=== PATIENT | male | born 1945 ===

== ENCOUNTER 2020-10-17 12:40 | Day surgery (SDC) | payer OTHER ==
[~2020-10-17] VITALS: Ht 177.8 cm; Wt 82.6 kg
[~2020-10-17 12:40] MED LIST: ATOR20 PO; Aspirin EC81 MG PO; CITALOPRAM HBR10 MG PO; FLAX PO; GUAI600T33 PO; LEVSOD88 PO; MELATONIN5 M1 PO; MULTIPLE VITAM1 EACH PO; NAPR220 PO; SYNTHROID88 MCG PO; VITAMIN D325 MC3 PO; Vitamin B-Comp1 EACH PO; ZOLP5 PO; [UNRECOGNIZED DRUG - CODE] PO; [UNRECOGNIZED DRUG - OTHER] PO
== END 2020-10-17 15:30 | disposition home or self-care (01) ==
LOC: ORSCSDS 12:40
PROVIDERS: Internal Medicine Gastroenterology
PROC: 0DBN8ZX Excision of Sigmoid Colon, Via Natural or Artificial Opening Endoscopic, Diagnostic (ICD-10-PCS; principal; 2020-10-17 13:00)
PROC: 0DBL8ZX Excision of Transverse Colon, Via Natural or Artificial Opening Endoscopic, Diagnostic (ICD-10-PCS; principal; 2020-10-17 13:00)
DX: Z12.11 Encounter for screening for malignant neoplasm of colon (principal); D12.3 Benign neoplasm of transverse colon; D12.5 Benign neoplasm of sigmoid colon; Z80.0 Family history of malignant neoplasm of digestive organs; K57.30 Diverticulosis of large intestine without perforation or abscess without bleeding; K64.8 Other hemorrhoids; E78.5 Hyperlipidemia, unspecified; E03.9 Hypothyroidism, unspecified; F17.210 Nicotine dependence, cigarettes, uncomplicated; Z79.899 Other long term (current) drug therapy
CPT/HCPCS: 88305; J2704; J7120